=== PATIENT | female | born 1990 | race Caucasian/White ===

== ENCOUNTER 2022-10-10 15:25 | Emergency (ER) | payer OTHER ==
[~2022-10-10] VITALS: Ht 167.6 cm; Wt 158.8 kg
[2022-10-10] MEDS ORDERED: SEROQUEL100 MG PO (15:39)
[2022-10-10] MEDS ORDERED: CYMBALTA30 MG PO (15:40)
[2022-10-10] MEDS ORDERED: VISTARIL50 MG PO (15:40)
[2022-10-10] MEDS ORDERED: STRATTERA25 MG PO (15:41)
[2022-10-10] MEDS ORDERED: BENZONATATE100 M1 PO (16:00)
[2022-10-10] MEDS ORDERED: LEVOFLOXACIN750 M2 PO (16:00)
== END 2022-10-10 16:47 | disposition home or self-care (01) ==
LOC: ED 15:25
DX: J40 Bronchitis, not specified as acute or chronic (principal); H66.93 Otitis media, unspecified, bilateral; F17.200 Nicotine dependence, unspecified, uncomplicated